=== PATIENT | female | born 1965 | race Caucasian/White ===

== ENCOUNTER → 2020-05-21 | Day surgery (SDC) | payer OTHER ==
[~2020-05-21] MED LIST: BALANCED SALT SOLN (OPTH) 15 ML BTL IO ONE; FENTANYL CITRATE/PF 100MCG/2 ML INJ ONE; LIDOCAINE 2%/ EPINEPHRINE 20ML MDV ONE; LIDOCAINE HCL 2% LOCAL INJ 5 ML SDV VIAL INJ ONE; MIDAZOLAM HCL 2 MG/2 ML VIAL ONE; NEOMYCIN/POLYMYXIN/DEX (OPTH) 3.5 GM TUBE ONE; PRILOSEC OTC20 MG PO; PROPOFOL IV EMULSION 10 MG/ML 20 ML VIAL ONE
[2020-05-21 15:05] VITALS: BP 106/68
== END | disposition home or self-care (01) ==
LOC: OR 11:16
PROVIDERS: ATTEND Ophthalmology
DX: H02.834 Dermatochalasis of left upper eyelid (principal); H02.831 Dermatochalasis of right upper eyelid; I95.9 Hypotension, unspecified; K21.9 Gastro-esophageal reflux disease without esophagitis; N39.0 Urinary tract infection, site not specified; F41.9 Anxiety disorder, unspecified; Z01.812 Encounter for preprocedural laboratory examination; Z11.59 Encounter for screening for other viral diseases
CPT/HCPCS: 15823; J2001 ×2; J2250; J2704; J3010; U0002